=== PATIENT | male | born 1955 | race Caucasian/White ===

== ENCOUNTER 2016-07-20 18:38 | Observation (INO) | payer OTHER ==
[2004-12-16 16:30] VITALS: BP 159/82
[~2016-07-20] VITALS: Ht 190.5 cm; Wt 113.1 kg
[~2016-07-20 18:38] MED LIST: ASPIRIN 32325 MG/TAB PO; DIOVAN 40MG40 MG; DIOVAN HCT 25 M1 TAB PO; DUO-KAPS1 CAP PO; LEVSIN0.125 M1 SL; NORCO 325 MG-51 TAB PO; PERCOCET 325 MG1 TA2 PO; PLAVIX 75MG TAB75 MG PO; TENORMIN 5050 MG/TAB PO; TESTOSTERONE; VIAGRA100 MG PO; ZOCOR 40MG40 MG PO
[2016-07-20 19:28] LABS: BASO % 0.4 % (0.0-2.0); EOS # 0.1 (0.0-0.7); GRAN # 5.4 (1.4-6.5); GRAN % 70.2 % (42.2-75.2); HEMATOCRIT 44.9 % (42.0-52.0); HEMOGLOBIN 15.8 g/dl (13.5-18.0); LYMPH # 1.6 (1.2-3.4); LYMPH % 20.7 % (20.0-51.0); MEAN CELL VOLUME 92 fl (80.0-100.0); MEAN CORPUSCULAR HEMOGLOBIN 32 pg (27.0-31.0); MEAN CORPUSCULAR HGB CONC 35 g/dl (33.0-37.0); MEAN PLATELET VOLUME 10.5 fl (7.4-10.4); MONO # 0.6 (0.1-0.6); MONO % 7.3 % (1.7-9.3); PLATELET COUNT 225 K/mm3 (130-400); RED BLOOD COUNT 4.87 M/mm3 (4.20-5.60); REDCELL DISTRIBUTION WIDTH-CV 13.3 % (11.5-14.5); WHITE BLOOD COUNT 7.7 K/mm3 (4.8-10.8)
[2016-07-20 19:29] LABS: INR 1.1 (0.8-3.0); PROTHROMBIN TIME 12.5 SECONDS (9.7-12.8)
[2016-07-20 19:31] LABS: PARTIAL THROMBOPLASTIN TIME 34.2 SECONDS (26.0-37.0)
[2016-07-20 19:35] LABS: ALANINE AMINOTRANSFERASE 66 U/L (21-72); ALBUMIN 4.3 gm/dL (3.5-5.0); ALKALINE PHOSPHATASE 68 U/L (50-136); ANION GAP 13 mmol/L (7-16); BILIRUBIN,TOTAL 0.9 mg/dL (0.0-1.0); BLOOD UREA NITROGEN 16 mg/dL (9-20); CALCIUM 9.2 mg/dL (8.4-10.2); CARBON DIOXIDE 23 mmol/L (22-30); CHLORIDE 101 mmol/L (98-107); CREATININE, serum 0.91 mg/dL (0.66-1.25); GLUCOSE 121 mg/dL (74-106); LIPASE 65 U/L (23-300); POTASSIUM 3.5 mmol/L (3.4-5.0); SODIUM 137 mmol/L (137-145); TOTAL PROTEIN 6.9 gm/dL (6.4-8.2)
[2016-07-20 19:47] LABS: B-TYPE NATRIURETIC PEPTIDE 84 pg/mL (0-125)
[2016-07-20 19:48] LABS: TROPONIN-I < 0.012 ng/mL (0.000-0.034)
[2016-07-20 19:49] LABS: CREATINE KINASE 168 U/L (55-170)
[2016-07-20] MEDS ORDERED: ELIQUIS 5MG PO (20:38)
[2016-07-20] MEDS ORDERED: MULTAQ400 MG PO (20:41)
[2016-07-20] MEDS ORDERED: XANAX .25M0.25 MG/TA PO (21:20)
[2016-07-20 21:28] VITALS: BP 131/73; PULSE 70; TEMP 97.6
[2016-07-20 23:49] VITALS: BP 133/63; PULSE 73; TEMP 97.7
[2016-07-20 23:57] LABS: MAGNESIUM 1.9 mg/dL (1.6-2.3)
[2016-07-21 03:39] LABS: ANION GAP 11 mmol/L (7-16); BLOOD UREA NITROGEN 15 mg/dL (9-20); CALCIUM 8.8 mg/dL (8.4-10.2); CARBON DIOXIDE 27 mmol/L (22-30); CHLORIDE 102 mmol/L (98-107); CREATININE, serum 0.83 mg/dL (0.66-1.25); GLUCOSE 113 mg/dL (74-106); POTASSIUM 3.4 mmol/L (3.4-5.0); SODIUM 139 mmol/L (137-145)
[2016-07-21 03:43] VITALS: BP 111/59; PULSE 57
[2016-07-21 03:51] LABS: B-TYPE NATRIURETIC PEPTIDE 70 pg/mL (0-125)
[2016-07-21 07:37] VITALS: BP 124/61; PULSE 59; TEMP 97.5
[2016-07-21 11:18] VITALS: BP 129/67; PULSE 55; TEMP 98.6
[2016-07-21] MEDS ORDERED: NITROSTAT0.4 MG/TAB SL (11:47)
[2016-07-21] MEDS ORDERED: ASPIRIN 81M81 MG/TA2 PO (11:48)
== END 2016-07-21 13:20 | disposition home or self-care (01) ==
LOC: COL.ER 18:38 → MEDICAL 19:58
PROVIDERS: Emergency Medicine; Family Medicine; Nurse Practitioner Family
DX: R07.89 Other chest pain (principal); I48.0 Paroxysmal atrial fibrillation; I10 Essential (primary) hypertension; I25.2 Old myocardial infarction; I25.10 Atherosclerotic heart disease of native coronary artery without angina pectoris; G47.33 Obstructive sleep apnea (adult) (pediatric); F41.9 Anxiety disorder, unspecified; J45.909 Unspecified asthma, uncomplicated; E29.1 Testicular hypofunction; E11.9 Type 2 diabetes mellitus without complications; E78.2 Mixed hyperlipidemia; Z87.891 Personal history of nicotine dependence; Z86.73 Personal history of transient ischemic attack (TIA), and cerebral infarction without residual deficits; Z95.5 Presence of coronary angioplasty implant and graft; Z90.49 Acquired absence of other specified parts of digestive tract; Z82.49 Family history of ischemic heart disease and other diseases of the circulatory system; Z85.46 Personal history of malignant neoplasm of prostate; Z90.79 Acquired absence of other genital organ(s); Z80.9 Family history of malignant neoplasm, unspecified; Z79.01 Long term (current) use of anticoagulants
CPT/HCPCS: G0378

== ENCOUNTER 2016-07-24 08:13 | Day surgery (SDC) | payer OTHER ==
[2004-12-16 16:30] VITALS: BP 159/82
[2016-07-24] VITALS (13 sets, daily range): BP systolic 133–159; BP diastolic 68–87; PULSE 53–71; TEMP 97.9–98.4
[~2016-07-24] VITALS: Ht 190.7 cm; Wt 113.0 kg
[~2016-07-24 08:13] MED LIST changes: +ASPIRIN 81M81 MG/TA2 PO; +ELIQUIS 5MG PO; +MULTAQ400 MG PO; +NITROSTAT0.4 MG/TAB SL; +XANAX .25M0.25 MG/TA PO
[2016-07-24 08:47] LABS: HEMATOCRIT 45.2 % (42.0-52.0); HEMOGLOBIN 15.5 g/dl (13.5-18.0); MEAN CELL VOLUME 94 fl (80.0-100.0); MEAN CORPUSCULAR HEMOGLOBIN 32 pg (27.0-31.0); MEAN CORPUSCULAR HGB CONC 34 g/dl (33.0-37.0); MEAN PLATELET VOLUME 10.1 fl (7.4-10.4); PLATELET COUNT 221 K/mm3 (130-400); RED BLOOD COUNT 4.79 M/mm3 (4.20-5.60); REDCELL DISTRIBUTION WIDTH-CV 13.5 % (11.5-14.5); WHITE BLOOD COUNT 6.2 K/mm3 (4.8-10.8)
[2016-07-24 08:51] LABS: PROTHROMBIN TIME 10.8 SECONDS (9.7-12.8)
[2016-07-24 08:58] LABS: CALCIUM 8.8 mg/dL (8.4-10.2); CREATININE, serum 0.9 mg/dL (0.66-1.25)
[2016-07-24] MEDS ORDERED: ASPIRIN E.C. 8181 MG PO (09:13)
== END 2016-07-24 16:50 | disposition home or self-care, planned readmission (81) ==
LOC: COL.CAR 08:13
PROVIDERS: Internal Medicine Cardiovascular Disease
DX: I25.110 Atherosclerotic heart disease of native coronary artery with unstable angina pectoris (principal); I10 Essential (primary) hypertension; J45.909 Unspecified asthma, uncomplicated; E11.9 Type 2 diabetes mellitus without complications; E78.2 Mixed hyperlipidemia; G47.30 Sleep apnea, unspecified; Z90.79 Acquired absence of other genital organ(s); Z95.5 Presence of coronary angioplasty implant and graft; Z85.46 Personal history of malignant neoplasm of prostate; Z86.73 Personal history of transient ischemic attack (TIA), and cerebral infarction without residual deficits; Z87.891 Personal history of nicotine dependence; Z83.3 Family history of diabetes mellitus; Z82.49 Family history of ischemic heart disease and other diseases of the circulatory system; Z80.9 Family history of malignant neoplasm, unspecified
CPT/HCPCS: C1769; C1887; C1894; J1644; J2250; J3010; Q9967

== ENCOUNTER 2016-10-22 14:28 | Outpatient (RCR) | payer OTHER ==
[~2016-10-22 14:28] MED LIST changes: +ASPIRIN E.C. 8181 MG PO
== END 2016-10-27 08:17 | disposition home or self-care (01) ==
LOC: COL.CR 14:28
DX: Z48.812 Encounter for surgical aftercare following surgery on the circulatory system (principal); Z95.5 Presence of coronary angioplasty implant and graft